=== PATIENT | female | born 1960 | race African-American/Black ===

== ENCOUNTER 2017-09-08 17:21 | Emergency (ER) | payer OTHER ==
[~2017-09-08] VITALS: Ht 165.1 cm; Wt 86.0 kg
[2017-09-08] MEDS ORDERED: ACETAMINOPHEN 325MG TABLET PO ONE (18:45)
[2017-09-08 20:30] VITALS: BP 171/105
[2017-09-08] MEDS ORDERED: TRAMADOL 50MG TABLET PO ONE (20:30)
== END 2017-09-08 21:57 | disposition home or self-care (01) ==
LOC: ER 17:21
DX: M54.2 Cervicalgia (principal); M25.562 Pain in left knee; M54.5 Low back pain; M25.552 Pain in left hip; M25.551 Pain in right hip; J45.909 Unspecified asthma, uncomplicated; F17.200 Nicotine dependence, unspecified, uncomplicated; F31.9 Bipolar disorder, unspecified; W01.0XXA Fall on same level from slipping, tripping and stumbling without subsequent striking against object, initial encounter; Y93.9 Activity, unspecified; Y92.9 Unspecified place or not applicable
CPT/HCPCS: 72125; 72131; 72192; 73562; 99284

== ENCOUNTER 2019-02-20 12:28 | Emergency (ER) | payer OTHER ==
[~2019-02-20] VITALS: Ht 170.2 cm; Wt 57.0 kg
[2019-02-20] MEDS ORDERED: NITROGLYCERIN 0.4MG TABLET SL SL PRN (13:15)
[2019-02-20] MEDS ORDERED: ASPIRIN 81MG TABLET PO ONE (13:15)
[2019-02-20 14:10] LABS: BASOPHILS % 0.8 % (0.0-2.0); EOSINOPHILS % 4.7 % (0.0-5.0); HEMATOCRIT. 39.1 % (36.0-48.0); HEMOGLOBIN. 12.7 g/dL (12.0-16.0); LYMPHOCYTES % 26.9 % (20.0-50.0); MEAN CORPUSCULAR HEMOGLOBIN 27.3 pg (28.0-32.0); MEAN CORPUSCULAR VOLUME 84.2 fL (81.0-99.0); MEAN PLATELET VOLUME 8.4 fl (7.4-10.4); MONOCYTES % 10.6 % (2.0-8.0); PLATELET 301 x1000/uL (130-400); RED BLOOD CELL COUNT 4.64 mill/uL (4.2-5.4); RED CELL DISTRIBUTION WIDTH 14.9 % (11.6-14.6)
[2019-02-20 14:15] LABS: CHLORIDE 113 mEq/L (98-107)
[2019-02-20 14:20] LABS: ETHANOL BLOOD < 10 mg/dL
[2019-02-20 14:21] LABS: *AMPHETAMINES SCREEN URINE NEGATIVE (NEGATIVE); *BARBITURATES SCREEN URINE NEGATIVE (NEGATIVE); *BENZODIAZEPINES SCREEN URINE NEGATIVE (NEGATIVE); *COCAINE SCREEN URINE PRESUMTIVE POSITIVE (NEGATIVE)
[2019-02-20 14:23] LABS: CANNABINOID URINE SCREEN NEGATIVE (NEGATIVE); METHADONE URINE SCREEN NEGATIVE (NEGATIVE); OPIATES URINE SCREEN NEGATIVE (NEGATIVE); PHENCYCLIDINE URINE SCREEN PRESUMTIVE POSITIVE (NEGATIVE)
[2019-02-20 18:40] VITALS: BP 169/80
== END 2019-02-20 21:43 | disposition home or self-care (01) ==
LOC: ER 12:28 → CANBEDREQ 02-21 01:32
DX: R07.89 Other chest pain (principal); I10 Essential (primary) hypertension; J45.909 Unspecified asthma, uncomplicated; F31.9 Bipolar disorder, unspecified; F12.10 Cannabis abuse, uncomplicated
CPT/HCPCS: 36415; 71045; 80053; 80305; 80320; 83880; 84484; 85025; 93005; 99284; Z7610; G0480

== ENCOUNTER 2021-10-19 14:45 | Emergency (ER) | payer OTHER ==
[~2021-10-19] VITALS: Ht 170.2 cm; Wt 68.0 kg
[2021-10-19 16:26] LABS: BASOPHILS % 1.3 % (0.0-2.0); EOSINOPHILS % 5.1 % (0.0-5.0); HEMATOCRIT. 37.6 % (36.0-48.0); LYMPHOCYTES % 34.2 % (20.0-50.0); MEAN CORPUSCULAR HEMOGLOBIN 27.1 pg (28.0-32.0); MEAN CORPUSCULAR VOLUME 84.7 fL (81.0-99.0); MEAN PLATELET VOLUME 8.8 fl (7.4-10.4); NEUTROPHILS % 51.4 % (40.0-76.0); PLATELET 224 x1000/uL (130-400); RED BLOOD CELL COUNT 4.44 mill/uL (4.2-5.4)
[2021-10-19] MEDS ORDERED: IPRATROPIUM BROMIDE (0.02%) 0.5MG/2.5ML NEB HHN STA (16:32)
[2021-10-19] MEDS ORDERED: ALBUTEROL (0.083%) 2.5MG/3ML NEB HHN STA (16:32)
[2021-10-19 16:37] LABS: CHLORIDE 111 mEq/L (98-107)
[2021-10-19] MEDS ORDERED: PREDNISONE 20MG TABLET PO ONE (16:45)
[2021-10-19] MEDS ORDERED: ALBU18HF2 IH (17:27)
[2021-10-19] MEDS ORDERED: P20 MT (17:27)
[2021-10-19 19:00] VITALS: BP 157/80
== END 2021-10-19 19:01 | disposition home or self-care (01) ==
LOC: ER 14:48
DX: J44.1 Chronic obstructive pulmonary disease with (acute) exacerbation (principal); I11.0 Hypertensive heart disease with heart failure; I50.9 Heart failure, unspecified; F31.9 Bipolar disorder, unspecified; F12.10 Cannabis abuse, uncomplicated
CPT/HCPCS: 36415; 71045; 80053; 83880; 85025; 93005; 94640; 99285; J7512; Z7610

== ENCOUNTER 2024-09-20 14:27 | Emergency (ER) | payer OTHER ==
[~2024-09-20] VITALS: Ht 165.1 cm; Wt 55.0 kg
[~2024-09-20 14:27] MED LIST: ALBU18HF2 IH; P20 MT
[2024-09-20 14:36] VITALS: RESP 16; O2SAT 99
[2024-09-20] MEDS ORDERED: HYDROCODONE/ACETAMINOPHEN 5/325MG TABLET PO ONE (15:00)
[2024-09-20] MEDS ORDERED: METHOCARBAMOL 500MG TABLET PO ONE (15:00)
[2024-09-20] MEDS: HYDROCODONE/ACETAMINOPHEN 5/325MG TABLET PO SCH (16:49)
[2024-09-20] MEDS: METHOCARBAMOL 500MG TABLET PO SCH (16:49)
[2024-09-20] MEDS ORDERED: METH-653 MT (19:29)
[2024-09-20] MEDS ORDERED: IBUP-2029 MT (19:29)
[2024-09-20] MEDS ORDERED: LIDO700A30 TP (19:29)
[2024-09-20] MEDS ORDERED: [UNRECOGNIZED DRUG - CODE] MC (19:30)
[2024-09-20 20:36] VITALS: BP 145/62; PULSE 52; TEMP 36.7; O2SAT 100
== END 2024-09-20 20:42 | disposition home or self-care (01) ==
LOC: ER 14:27
DX: S20.211A Contusion of right front wall of thorax, initial encounter (principal); F41.9 Anxiety disorder, unspecified; F12.10 Cannabis abuse, uncomplicated; I11.0 Hypertensive heart disease with heart failure; I50.9 Heart failure, unspecified; J45.909 Unspecified asthma, uncomplicated; Z79.899 Other long term (current) drug therapy; Z86.59 Personal history of other mental and behavioral disorders; Y04.0XXA Assault by unarmed brawl or fight, initial encounter; Y93.89 Activity, other specified; Y92.89 Other specified places as the place of occurrence of the external cause; Y99.8 Other external cause status
CPT/HCPCS: 71101; 93970; 99284